=== PATIENT | female | born 1995 | race Caucasian/White ===

== ENCOUNTER 2019-12-04 00:12 | Outpatient (CLI) | payer OTHER, SELFPAY ==
[2019-12-04 17:13] LABS: SARS-CoV-2 RNA PCR Negative
== END 2019-12-04 00:13 | disposition home or self-care (01) ==
LOC: ANHCOVIDDT 00:12
PROVIDERS: PCP Internal Medicine; Visit Provider Internal Medicine Gastroenterology
DX: Z01.812 Encounter for preprocedural laboratory examination (principal); Z11.59 Encounter for screening for other viral diseases
CPT/HCPCS: 87635; C9803; U0003

== ENCOUNTER 2019-12-06 02:12 | Day surgery (SDC) | payer OTHER, SELFPAY ==
[2019-11-30 12:52] VITALS: BMI 35.9
[2019-12-06 07:15] VITALS: BP 118/84; PULSE 61; RESP 16; TEMP 36.7; O2SAT 100; BMI 36.1
[2019-12-06] MEDS: LACTATED RINGERS 1,000 ML 150 ML IV CONT (07:27)
--- NOTE | 2019-12-06 07:27 | P.HP_ITS ---
History of Present Illness History of Present Illness Consent: Risks, benefits, and alternatives have been discussed and questions answered. Patient agrees to proceed with procedure. Chief complaint: change in bowel habits Narrative: Tiffany Tyler is a 24 year old W female referred for colonoscopy for evaluation of change in bowel pattern. Patient has had alternating diarrhea and constipation. She denies any rectal bleeding. There is also associated abdominal pain. This has been intermittent over the past couple years. It is worsening of her symptoms recently. Patient has a family history of celiac disease on her mother's side of the family. She has had serology for this is been negative. She was placed on a gluten free diet with no significant improvement. She is being tested for lactose intolerance as well. no weight loss. Patient has an aunt who has Crohn's disease. [facility] Past Medical History Medical History (Updated 12/05/19 @ 08:59 by Raj Gill DO) Anxiety Depression PCOS (polycystic ovarian syndrome) Renal stones Surgical History Surgical History (Updated 12/05/19 @ 08:59 by Raj Gill DO) History of appendectomy Family History Family History (Updated 07/02/16 @ 16:04 by DOCTOR UNKNOWN) Grandparent Family history of type 2 diabetes mellitus Father Asthma Family history of kidney stones Mother Family history of arthritis Social History Social History Smoking status: Never smoker Alcohol intake: current Meds Home Medications and Allergies Home Medications Medication Instructions Recorded Confirmed Type spironolactone 50 mg tablet 50 mg PO DAILY #30 tablet 11/16/19 11/30/19 Rx fluoxetine 20 mg capsule 20 mg PO DAILY #30 cap 11/20/19 11/30/19 Rx cinnamon bark [Cinnamon] 1,000 mg PO DAILY 11/30/19 11/30/19 History desogestrel-ethinyl estradiol 1 tablet PO DAILY 11/30/19 11/30/19 History [Isibloom] vnefefnmothq-bkk-jtju-FA-vit K 1 tablet PO DAILY 11/30/19 11/30/19 History [Adults Multivitamin] Allergies Allergy/AdvReac Type Severity Reaction Status Date / Time gentamicin Allergy Unknown Swelling Verified 12/06/19 07:12 of the Eye lactose Allergy Unknown diarrhea Verified 12/06/19 07:12 morphine AdvReac Unknown Unknown Verified 12/06/19 07:12 Vital Signs Vital Signs - 24 hr 12/06/19 07:15 Temperature 36.7 C Pulse Rate 61 Respiratory Rate 16 Blood Pressure 118/84 Pulse Oximetry 100 Exam Const: Orientation/consciousness: patient oriented x3 Resp: Auscultation: clear to auscultation bilaterally Cardio: Rate: regular rate Rhythm: regular rhythm Heart sounds: no murmu rs GI: GI Palp: Yes Soft to palpation, No Tenderness to palpation present (GI), Yes No hepatosplenomegaly present and No Palpable mass present Auscultation: normal bowel sounds Neuro: General: patient oriented x3 and no focal motor deficits Extrem: General: no pedal edema Assessment and Plan Additional Plan Colonoscopy for change in bowel pattern
--- NOTE | 2019-12-06 07:31 | WPDANESEPPF ---
Anes - Initial Pre Proc Eval Procedure: Operation Date: 12/06/19 08:30 Proposed Procedures p Colonoscopy - Christopher Wagoner MD Date/Time: 12/06/19 07:31 Surgeon: Christopher Wagoner MD Pre Op Diagnosis: change in bowel habits Patient Data Age: 24 Gender: F Height: 1.63 m Weight: 95.6 kg Last Vital Signs Temp 36.7 C 12/06/19 07:15 Pulse 61 12/06/19 07:15 Resp 16 12/06/19 07:15 BP 118/84 12/06/19 07:15 Pulse Ox 100 12/06/19 07:15 Allergies Allergy/AdvReac Type Severity Reaction Status Date / Time gentamicin Allergy Unknown Swelling Verified 12/06/19 07:12 of the Eye lactose Allergy Unknown diarrhea Verified 12/06/19 07:12 morphine AdvReac Unknown Unknown Verified 12/06/19 07:12 Home Medications Medication Instructions Recorded Confirmed Type spironolactone 50 mg tablet 50 mg PO DAILY #30 tablet 11/16/19 11/30/19 Rx fluoxetine 20 mg capsule 20 mg PO DAILY #30 cap 11/20/19 11/30/19 Rx cinnamon bark [Cinnamon] 1,000 mg PO DAILY 11/30/19 11/30/19 History desogestrel-ethinyl estradiol 1 tablet PO DAILY 11/30/19 11/30/19 History [Isibloom] aykzseqeusze-zgq-vfjh-FA-vit K 1 tablet PO DAILY 11/30/19 11/30/19 History [Adults Multivitamin] Patient hx anesthesia problems: none Family hx anesthesia problems: none PMFSH Past Medical History Medical History (Updated 12/05/19 @ 08:59 by Raj Gill DO) Anxiety Depression PCOS (polycystic ovarian syndrome) Renal stones Surgical History Surgical History (Updated 12/05/19 @ 08:59 by Raj Gill DO) History of appendectomy Family History Family History (Updated 07/02/16 @ 16:04 by DOCTOR UNKNOWN) Grandparent Family history of type 2 diabetes mellitus Father Asthma Family history of kidney stones Mother Family history of arthritis Social History Social History Smoking status: Never smoker Alcohol intake: current Anes - Eval Final PreProcedure Day of Procedure 12/06/19 07:31 Patient weight: obese Heart: regular rate and rhythm Lungs: clear to auscultation and normal air movement Airway: Mallampati scale class II Neurological: alert and oriented Last oral intake: >/= 8 hours ASA classification: II Emergent: no Anesthetic plan: proceed Anesthesia type and monitoring: general GIVS and standard monitoring Informed Consent: The patient's anesthetic plan and its attendant risks and benefits were discussed with the patient/family/POA. Questions were solicited and answers provided to the satisfaction of the patient/family/POA.
[2019-12-06 09:14] VITALS: BP 84/39; PULSE 83; RESP 16; O2SAT 98
[2019-12-06 09:24] VITALS: BP 100/54; PULSE 83; RESP 16; O2SAT 98
[2019-12-06 09:34] VITALS: BP 100/54; PULSE 76; RESP 22; O2SAT 100
== END 2019-12-06 10:00 | disposition home or self-care (01) ==
PROVIDERS: PCP Internal Medicine; Visit Provider Internal Medicine Gastroenterology
PROC: 0DJD8ZZ Inspection of Lower Intestinal Tract, Via Natural or Artificial Opening Endoscopic (ICD-10-PCS; CPT 45378; principal; 2019-12-06 08:30)
DX: R19.4 Change in bowel habit (principal); K63.89 Other specified diseases of intestine; E28.2 Polycystic ovarian syndrome; F41.8 Other specified anxiety disorders; E66.9 Obesity, unspecified; Z68.36 Body mass index [BMI] 36.0-36.9, adult
CPT/HCPCS: 45380; 88305; J2704; J7120

== ENCOUNTER 2021-03-22 12:10 | Emergency (ER) | payer OTHER, SELFPAY ==
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
[2021-03-22 12:17] VITALS: BP 124/82; PULSE 87; RESP 12; TEMP 36.9; O2SAT 97
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
== END 2021-03-22 13:45 | disposition home or self-care (01) ==
PROVIDERS: Emergency Provider Registered Nurse; PCP Internal Medicine
DX: M62.838 Other muscle spasm (principal); V43.52XA Car driver injured in collision with other type car in traffic accident, initial encounter; E28.2 Polycystic ovarian syndrome
CPT/HCPCS: 72050; 99213; G0463

== ENCOUNTER 2021-08-20 11:13 | Emergency (ER) | payer BC, SELFPAY ==
--- NOTE | 2021-08-20 11:18 | ED.ABDPAIN ---
HPI - Abdominal Pain General Chief Complaint: Abdominal Pain Stated Complaint: ABD PAIN Time Seen by Provider: 08/20/21 11:18 Source: patient Mode of arrival: ambulatory Limitations: no limitations History of Present Illness HPI narrative: Ms. Tyler is a 25-year-old female patient presenting to the clinic today with complaints of lower abdominal pain and nausea x1 day. She reports she thinks that she is having an ovarian cyst rupture. She denies any fever, chills, urinary symptoms, blood in stool, or . Also reports so clear vaginal discharge without odor. No new sexual partners. Last BM was either this morning or yesterday and was normal for her History of IBS, PCOS, and appendectomy. States pain is a stabbing/ sharp pain in the left lower abdomen/pelvis and is a 6/10 on pain rating scale. She is passing gas MD elicited complaint: abdominal pain Related Data Home Medications Medication Instructions Recorded Confirmed Adults Multivitamin 1 tablet PO DAILY 11/30/19 11/30/19 cinnamon bark [Cinnamon] 1,000 mg PO DAILY 11/30/19 11/30/19 desogestrel-ethinyl estradiol 1 tablet PO DAILY 11/30/19 11/30/19 [Isibloom] albuterol sulfate INHALATION 03/22/21 Allergies Allergy/AdvReac Type Severity Reaction Status Date / Time gentamicin Allergy Unknown Swelling Verified 12/06/19 07:12 of the Eye lactose Allergy Unknown diarrhea Verified 12/06/19 07:12 morphine AdvReac Unknown Unknown Verified 12/06/19 07:12 Review of Systems Review of Systems: Pertinent positives per HPI. Patient denies any fever, chills, rash, headache, visual changes, dizziness, cough, runny nose, sore throat, shortness of breath, chest pain, palpitations, vomiting, diarrhea, constipation, or any urinary issues. [facility] Past Medical History Medical History Anxiety Depression PCOS (polycystic ovarian syndrome) Renal stones Surgical History Surgical History History of appendectomy Family History Family History Grandparent Family history of type 2 diabetes mellitus Father Asthma Family history of kidney stones Mother Family history of arthritis Social History Social History Smoking status: Never smoker Alcohol intake: current Substance use: never Gender identity (if verbalized by the patient): Female Comments At the time of my signature, I reviewed and agree with the nursing past medical, surgical, social, and family history. There is no relevant family history pertinent to the patient complaint. Exam Narrative: General: Well-developed, well nourished, in no apparent distress. Cardio: Regular rate and rhythm, s1 and s2 normal, no murmur appreciated. Resp: Clear to auscultation bilaterally, no rhonchi, rales, wheezing or rubs. Abdomen: Soft, obese, well-healed right lower quadrant surgical scar from appendectomy, pliable, bowel sounds present in all quadrants, tender to palpation over the left lower abdomen and left adnexa, negative Javier and Rovsing sign, no organomegly, no CVAT tenderness. Course Course Emergency Course: Portions of this record may have been created with voice recognition software. Level of Care: Express Care Visit Vital Signs Vital signs: Vital Signs Temperature 36.6 C 08/20/21 11:20 Pulse Rate 64 08/20/21 11:20 Respiratory Rate 16 08/20/21 11:20 Blood Pressure 134/74 08/20/21 11:20 Pulse Oximetry 100 08/20/21 11:20 Temperature 36.6 C 08/20/21 11:20 Pulse Rate 64 08/20/21 11:20 Respiratory Rate 16 08/20/21 11:20 Blood Pressure 134/74 08/20/21 11:20 Pulse Oximetry 100 08/20/21 11:20 Vital signs reviewed MDM - Abdominal Pain MDM Narrative Medical decision making narrative: Patient is having left lower q
[2021-08-20 11:20] VITALS: BP 134/74; PULSE 64; RESP 16; TEMP 36.6; O2SAT 100
== END 2021-08-20 11:51 | disposition short-term general hospital (02) ==
PROVIDERS: Emergency Provider Nurse Practitioner Family
DX: R10.32 Left lower quadrant pain (principal); N94.89 Other specified conditions associated with female genital organs and menstrual cycle; E28.2 Polycystic ovarian syndrome
CPT/HCPCS: 81003; 81025; 99212; G0463

== ENCOUNTER 2021-08-20 12:05 | Emergency (ER) | payer BC, SELFPAY ==
--- NOTE | ~2021-08-20 | US_ITS ---
EXAMINATION: US pelvic complete w TV DATE: 08/20/2021 15:27 INDICATION: Pelvic pain TECHNIQUE: Multiple transabdominal and endovaginal sonographic images of the pelvis were obtained. COMPARISON: 04/06/2018 FINDINGS: The uterus measures 6.8 x 2.6 x 4.0 cm. The endometrial complex measures 4 mm in thickness. Unchange d 3 mm echogenic dystrophic calcification in the anterior myometrium. The right ovary measures 3.2 x 2.6 x 2.4 cm. The left ovary measures 2.6 x 2.2 x 2.0 cm. There are multiple subcentimeter anechoic c ysts at the periphery of both ovaries which can be seen in the setting of polycystic ovarian disease. There is normal vascular flow in the ovaries. There is no free fluid in the pelvis. IMPRESSION: 1. Multiple subcentimeter cysts at the periphery of both ovaries which can be seen with polycystic ov jazmine disease. Reviewed, dictated and finalized at location A. MANAGER IMPRESSION: 1. Multiple subcentimeter cysts at the periphery of both ovaries which can be s een with polycystic ovarian disease.
[2021-08-20 12:08] VITALS: BP 133/84; PULSE 98; RESP 18; TEMP 36.3; O2SAT 100
[2021-08-20 13:24] VITALS: BP 152/72; PULSE 106; RESP 14; TEMP 36.9; O2SAT 100
--- NOTE | 2021-08-20 13:39 | ED.ABDPAIN ---
HPI - Abdominal Pain General Chief Complaint: Abdominal Pain Stated Complaint: abd pain Time Seen by Provider: 08/20/21 13:32 Source: patient Mode of arrival: ambulatory Limitations: no limitations History of Present Illness HPI narrative: Patient is a 25-year-old female complaining of left pelvic pain, I think I have a ruptured cyst , 8 out of 10 pain, dull, nonradiating started today. Patient was seen in urgent care and was told to go to the emergency room since they do not have ultrasound. Patient states that she has a history of ovarian cyst. Denies being . Denies any vaginal bleeding or discharge. Patient denies any chest pain, shortness of breath, abdominal pain, nausea, vomiting, diarrhea, urinary symptoms, fever or chills. Related Data Home Medications Medication Instructions Recorded Confirmed Adults Multivitamin 1 tablet PO DAILY 11/30/19 11/30/19 cinnamon bark [Cinnamon] 1,000 mg PO DAILY 11/30/19 11/30/19 desogestrel-ethinyl estradiol 1 tablet PO DAILY 11/30/19 11/30/19 [Isibloom] albuterol sulfate INHALATION 03/22/21 Allergies Allergy/AdvReac Type Severity Reaction Status Date / Time gentamicin Allergy Unknown Swelling Verified 12/06/19 07:12 of the Eye lactose Allergy Unknown diarrhea Verified 12/06/19 07:12 morphine AdvReac Unknown Unknown Verified 12/06/19 07:12 Review of Systems Review of Systems: All systems reviewed & are unremarkable except as noted in HPI and below Constitutional: Constitutional: Denies body ache(s), Denies chills, Denies excessive sweating, Denies fatigue, Denies fever(s), Denies headache(s), Denies lethargy, Denies malaise, Denies weakness and Denies weight loss Eyes: Eyes: Denies blurry vision, Denies change in vision and Denies loss of vision ENT: Denies dizziness, Denies ear discharge, Denies headache(s), Denies lip swelling, Denies epistaxis, Denies nasal congestion, Denies neck pain, Denies throat swelling and Denies tongue swelling Cardiovascular: Cardiovascular: Denies chest pain, Denies chest pain at rest, Denies chest pain with activity, Denies diaphoresis, Denies rapid heart rate, Denies edema, Denies irregular heart rhythm, Denies lightheadedness, Denies palpitations, Denies dyspnea and Denies dyspnea on exertion Respiratory: Respiratory: Denies chest congestion, Denies cough, Denies hemoptysis, Denies dyspnea and Denies dyspnea on exertion Gastrointestinal: Gastrointestinal: Denies abdominal pain, Denies melena, Denies hematochezia, Denies diarrhea, Denies nausea, Denies vomiting and Denies hematemesis Musculoskeletal: Musculoskeletal: Denies abnormal gait, Denies deformity, Denies joint swelling, Denies limited range of motion, Denies neck pain and Denies numbness Neurologic: Denies Abnormal speech present, Denies abnormal gait, Denies confusion, Denies dizziness, Denies headache(s), Denies focal weakness, Denies loss of vision, Denies numbness, Denies Other visual disturbances, Denies Sensory deficit (Neuro) and Denies weakness Psychiatric: Psychiatric: Denies confusion, Denies depression, Denies auditory hallucinations, Denies homicidal ideation and Denies suicidal ideation Endocrine: Endocrine: Denies cold intolerance, Denies excessive sweating, Denies fatigue, Denies heat intolerance and Denies palpitations Hematologic/Lymphatic: Hematologic/Lymphatic: Denies easy bleeding and Denies easy bruising Allergic/Immunologic: Allergic/Immunologic: Denies lip swelling, Denies throat swelling and Denies tongue swelling PMFSH Past Medical History Medical History Anxiety Depression PCOS (polycystic ovarian syndrome) Renal stones Surgical History Surgical History History of appendectomy Family History Family History Grandparent Family history of type 2 diabetes mellitus Father Asthma
[2021-08-20 14:33] LABS: Basophils Absolute Auto 0.1 K/mm3 (0.0-0.1); Basophils Percent Auto 0.4 % (0.2-1.2); Eosinophils Absolute Auto 0.2 K/mm3 (0-0.3); Eosinophils Percent Auto 1.3 % (0-4.4); Hematocrit 42.1 % (37.0-47.0); Hemoglobin 13.3 g/dL (12.0-15.0); Immature Granulocyte Absolute 0.04 K/mm3 (0.00-0.031); Immature Granulocyte Percent A 0.3 % (0-0.5); Lymphocytes Percent Auto 29.1 % (18.3-44.2); Mean Corpuscular HGB Conc 31.6 g/dl (32-36); Mean Corpuscular Hemoglobin 30.6 pg (26-34); Mean Corpuscular Volume 96.8 fl (80-100); Mean Platelet Volume 9.5 fl (7.4-10.4); Monocytes Absolute Auto 0.7 K/mm3 (0.1-0.6); Monocytes Percent Auto 6.2 % (2.6-8.5); Neutrophils Absolute Auto 7.5 K/mm3 (1.3-6.7); Neutrophils Percent Auto 62.7 % (45.5-73.1); Platelet Count Result 441 k/mm3 (150-375); Red Blood Count 4.35 M/mm3 (4.2-5.4)
[2021-08-20 14:46] LABS: Add Urine Microscopic? YES; Appearance Urine Cloudy (Clear); Bacteria Urine Trace /hpf; Bilirubin Urine Negative (Negative); Blood Urine 2+ (Negative); Color Urine Yellow (Yellow); Glucose Urine UA Negative (Negative); Ketones Urine 1+ mg/dL (Negative); Leukocyte Esterase Ur 3+ LEU/UL (Negative); Mucus Urine Few /lpf; Nitrate Urine Negative (Negative); Protein Urine Negative (Negative); Specific Grav Ur 1.027 (1.001-1.035); Squamous Epithelial Cell Urine Many /hpf (Few); Urobilinogen Urine Negative mg/dL (<2.0); WBC Urine 51-75 /hpf
[2021-08-20 14:49] LABS: Alanine Aminotransferase 25 U/L (4-35); Albumin Level 4.2 g/dL (3.5-5.1); Alkaline Phosphatase 67 U/L (38-126); Anion Gap 9 mmol/L (8-16); Aspartate Amino Transferase 36 U/L (14-36); Bilirubin,Total 0.5 mg/dL (0.2-1.3); Blood Urea Nitrogen 14 mg/dL (7-17); Calcium 9.2 mg/dL (8.4-10.2); Carbon Dioxide 19 mmol/L (22-30); Chloride 109 mmol/L (98-107); Estimated CRCL calculation 141 ml/min; Estimated Glomerular Filt Rate > 60; Glucose 86 mg/dL (65-110); Lipase 53 U/L (23-300); Potassium 4.1 mmol/L (3.4-5.0); Sodium 137 mmol/L (137-145)
[2021-08-20] MEDS: HYDROcodone/acetaminophen (*CRX) 5-325 MG TABLET 1 TAB PO (16:07)
[2021-08-20] MEDS: KETOROLAC 30 MG/ML VIAL (*BKC) IM (16:07)
== END 2021-08-20 16:30 | disposition home or self-care (01) ==
PROVIDERS: Emergency Provider Emergency Medicine; PCP Internal Medicine
DX: N83.201 Unspecified ovarian cyst, right side (principal); F41.9 Anxiety disorder, unspecified; F32.9 Major depressive disorder, single episode, unspecified; Z87.442 Personal history of urinary calculi
CPT/HCPCS: 36415; 76830; 76856; 80053; 81001; 81025; 83690; 85025; 87086; 87088; 96372; 99284; A9270; J1885

== ENCOUNTER 2021-09-25 16:10 | Emergency (ER) | payer BC, SELFPAY ==
[2021-09-25 16:16] VITALS: BP 126/67; PULSE 93; RESP 16; TEMP 36.3; O2SAT 98
--- NOTE | 2021-09-25 16:20 | ED.NAVMDI ---
HPI - Nausea/Vomiting/Diarrhea General Chief complaint: Nausea/Vomiting/Diarrhea Stated complaint: NAUSEA/VOMITING/DIARRHEA Time Seen by Provider: 09/25/21 16:22 History of Present Illness HPI Narrative: 26-year-old female who presents to Express Care with complaints of nausea vomiting with diarrhea which started this morning. Patient states that she started with nausea and vomiting early this morning and then she has had 3 watery stools with some abdominal cramping. Patient denies any sharp pain to abdomen and voices crampy sensation to abdomen with diarrhea only. Presently states nausea but no emesis since around 0400, no acute pain to abdomen at this time. She reports that bravo had similar symptoms 2 days ago. MD elicited complaint: nausea, vomiting and diarrhea Onset (ago): hour(s) (10) Description of vomiting: food contents Description of diarrhea: watery Associated nausea: Yes Associated abdominal pain: Yes Location of pain: diffuse Radiation: diffuse Pain consistency: colicky Severity: mild Quality: cramping Exacerbating factors: bowel movement Context: sick contacts Associated symptoms: loss of appetite and nausea/vomiting Treatment prior to arrival: other Related Data Home Medications Medication Instructions Recorded Confirmed Adults Multivitamin 1 tablet PO DAILY 11/30/19 11/30/19 cinnamon bark [Cinnamon] 1,000 mg PO DAILY 11/30/19 11/30/19 desogestrel-ethinyl estradiol tablet 09/25/21 [Apri] fluoxetine mg 09/25/21 Allergies Allergy/AdvReac Type Severity Reaction Status Date / Time gentamicin Allergy Unknown Swelling Verified 09/25/21 16:14 of the Eye lactose Allergy Unknown diarrhea Verified 09/25/21 16:14 morphine AdvReac Unknown Unknown Verified 09/25/21 16:14 Review of Systems Review of Systems: CONSTITUTIONAL: Denies fever, chills, or sweats. EYES: Denies visual changes, redness, or discharge. ENT: Denies rhinorrhea, congestion, sore throat, or otalgia. CARDIOVASCULAR: Denies chest pain, palpitations, or edema. RESPIRATORY: Denies cough or dyspnea. GASTROINTESTINAL: positive for crampy type of diffuse abdominal pain with nausea, vomiting, or diarrhea. GENITOURINARY: Denies dysuria or hematuria. SKIN: Denies rash or itching. MUSCULOSKELETAL: Denies back pain, joint pain, or myalgia. NEUROLOGIC: Denies headache, numbness, or weakness. PSYCHIATRIC: Positive for history of anxiety or depression. All systems reviewed & are unremarkable except as noted in HPI and below PMFSH Past Medical History Medical History (Updated 09/25/21 @ 17:04 by Amy Albright NP) Anxiety Depression Eczema PCOS (polycystic ovarian syndrome) Renal stones Surgical History Surgical History History of appendectomy Family History Family History Grandparent Family history of type 2 diabetes mellitus Father Asthma Family history of kidney stones Mother Family history of arthritis Social History Social History Smoking status: Never smoker Alcohol intake: current Substance use: never Gender identity (if verbalized by the patient): Female Comments At time of signature, agree with nursing past medical, surgical, social and family history. There is no relevant family history pertinent to the presenting complaint Exam Narrative: GENERAL: Well-appearing, well-nourished, and in no acute distress. HEAD: Normocephalic, atraumatic. EYES: PERRLA and EOMI. ENT: Nares clear, no rhinorrhea or epistaxis. Mucous membranes moist.TM's normal with good light reflex, throat pink with no lesions or exudate, no tonsil swelling NECK: Supple.no lymphadenopathy CHEST: Clear to auscultation. No respiratory distress.SAO2 98% on room air, no cough or any tachypnea. HEART: Regular rate and rhythm. No murmur heard. Normal peripheral pulses. ABDOMEN: Soft,
== END 2021-09-25 16:44 | disposition home or self-care (01) ==
PROVIDERS: Emergency Provider Registered Nurse
DX: K52.9 Noninfective gastroenteritis and colitis, unspecified (principal); E28.2 Polycystic ovarian syndrome; F41.9 Anxiety disorder, unspecified; F32.A Depression, unspecified
CPT/HCPCS: 99213; G0463

== ENCOUNTER 2022-03-20 08:28 | Emergency (ER) | payer OTHER, SELFPAY ==
--- NOTE | 2022-03-20 08:39 | ED.URI ---
HPI - URI/Sore Throat General Chief Complaint: Upper Respiratory Infection Stated Complaint: sore throat, cough, sinus congestion Time Seen by Provider: 03/20/22 08:46 Source: patient and RN notes reviewed Mode of arrival: ambulatory Limitations: no limitations History of Present Illness HPI Narrative: 26-year-old female presents with concern for 4 to 5-day history of nasal congestion and drainage, sore throat, fever. She reports painful swallowing. She reports her partner has had similar symptoms. She reports she is taken Sudafed and cough drops without relief. MD elicited complaint: sore throat and nasal congestion Related Data Home Medications Medication Instructions Recorded Confirmed cinnamon bark 500 mg capsule 1,000 mg PO DAILY 11/30/19 03/20/22 (Cinnamon) multivit with minerals-iron 18 1 tablet PO DAILY 11/30/19 03/20/22 mg-folic ac 400 mcg-vit K 25 mcg tablet (Adults Multivitamin) desogestrel 0.15 mg-ethinyl 1 tablet PO DAILY 09/25/21 03/20/22 estradiol 0.03 mg tablet (Apri) fluoxetine 20 mg capsule 20 mg PO DAILY 09/25/21 03/20/22 Allergies Allergy/AdvReac Type Severity Reaction Status Date / Time gentamicin Allergy Unknown Swelling Verified 03/20/22 08:50 of the Eye lactose Allergy Unknown diarrhea Verified 03/20/22 08:50 morphine AdvReac Unknown Unknown Verified 03/20/22 08:50 Review of Systems Review of Systems: CONSTITUTIONAL: Reports malaise, fever. EYES: Denies visual changes, redness, or discharge. ENT: Reports rhinorrhea, congestion, and sore throat. Denies sinus pain, otalgia CARDIOVASCULAR: Denies chest pain, palpitations, or edema. RESPIRATORY: Reports cough. Denies dyspnea. GASTROINTESTINAL: Denies abdominal pain, nausea, vomiting, diarrhea SKIN: Denies rash or itching. MUSCULOSKELETAL: Denies myalgia. NEUROLOGIC: Denies headache. All systems reviewed & are unremarkable except as noted in HPI and below PMFSH Past Medical History Medical History (Updated 03/20/22 @ 08:57 by Ariadna Kwong NP) Anxiety Depression Eczema PCOS (polycystic ovarian syndrome) Renal stones Surgical History Surgical History History of appendectomy Family History Family History Grandparent Family history of type 2 diabetes mellitus Father Asthma Family history of kidney stones Mother Family history of arthritis Social History Social History Smoking status: Never smoker Alcohol intake: current Substance use: never Gender identity (if verbalized by the patient): Female Comments At time of signature, agree with nursing past medical, surgical, social and family history. There is no relevant family history pertinent to the presenting complaint Exam Narrative: GENERAL: Nontoxic. And in no acute distress. HEAD: Normocephalic EYES: PERRLA, conjunctivae clear ENT: Nares clear, clear discharge. Mucous membranes moist. TM pearly robert with dull light reflex bilaterally; no tragal tenderness. Oropharynx erythematous without lesions. Tonsils enlarged and without exudate, no drooling, no hoarseness, no trismus, uvula midline. NECK: Supple. No lymphadenopathy CHEST: Clear to auscultation, breath sounds equal. No wheezing, rhonchi, rales, or stridor. No respiratory distress, speaks in full sentences. HEART: Regular rate and rhythm. No murmur heard. SKIN: Warm, dry, no rash. NEURO: Alert and oriented x3. PSYCH: Normal mood and affect Course Course Emergency Course: Patient is aware of diagnosis, understands and agrees to treatment plan. Anticipatory guidance given. Patient agrees to follow-up as directed and is aware of reasons to seek care at the emergency department. Portions of this record may have been created with voice recognition software Level of Care: Express Care Visit Vital Signs Vital signs: Reviewe
[2022-03-20 08:42] VITALS: BP 112/75; PULSE 78; RESP 18; TEMP 36.3; O2SAT 100
== END 2022-03-20 09:04 | disposition home or self-care (01) ==
PROVIDERS: Emergency Provider Nurse Practitioner
DX: J02.9 Acute pharyngitis, unspecified (principal); F41.9 Anxiety disorder, unspecified; F32.A Depression, unspecified; E28.2 Polycystic ovarian syndrome
CPT/HCPCS: 87081; 87880; 99213; G0463

== ENCOUNTER 2022-04-07 14:29 | Emergency (ER) | payer OTHER, SELFPAY ==
[2022-04-07] VITALS (11 sets, daily range): BP systolic 131–139; BP diastolic 70–95; PULSE 82–102; RESP 13–28; TEMP 36.5; O2SAT 97–100
--- NOTE | ~2022-04-07 | CT_ITS ---
EXAMINATION: CT abdomen pelvis w con DATE: 04/07/2022 16:13 INDICATION: Generalized abdominal pain. Flank pain. Hematuria. TECHNIQUE: Computed tomography (CT) of the abdomen and pelvis was performed with 100 mL Omnipaque 350 intravenous contrast. Automated exposure control and iterative reconstruction technique were employe d. The dose-length product was 1618.93 mGy-cm. COMPARISON: CT abdomen and pelvis 10/15/2016 FINDINGS: The visualized portions of the lung bases demonstrate mild elevation of right hemidiaphragm . No pleural effusion. The heart size is normal. No pericardial effusion. The liver, gallbladder, spl een, pancreas, adrenal glands, and kidneys are normal. There are no dilated loops of bowel. The appen carolin is not visualized. There are no pathologically enlarged lymph nodes. There is no free intraperito krista fluid. There is mild thoracolumbar spondylosis. IMPRESSION: 1. No etiology for the patient's symptoms. Reviewed, dictated and finalized at location A.
--- NOTE | 2022-04-07 15:02 | ED.GENADULT ---
HPI - General Adult General Chief complaint: Abdominal Pain Stated complaint: Possible Kidney Infection, Nausea Time Seen by Provider: 04/07/22 14:39 History of Present Illness HPI narrative: 26-year-old female with history of kidney stones presenting to the emergency department for evaluation of 1 week of right flank pain. Patient had follow-up with a prompt care and was instructed to present to the emergency department for evaluation. Patient declined medications for pain control. Related Data Home Medications Medication Instructions Recorded Confirmed cinnamon bark 500 mg capsule 1,000 mg PO DAILY 11/30/19 03/20/22 (Cinnamon) multivit with minerals-iron 18 1 tablet PO DAILY 11/30/19 03/20/22 mg-folic ac 400 mcg-vit K 25 mcg tablet (Adults Multivitamin) desogestrel 0.15 mg-ethinyl 1 tablet PO DAILY 09/25/21 03/20/22 estradiol 0.03 mg tablet (Apri) fluoxetine 20 mg capsule 20 mg PO DAILY 09/25/21 03/20/22 Allergies Allergy/AdvReac Type Severity Reaction Status Date / Time gentamicin Allergy Unknown Swelling Verified 03/20/22 08:50 of the Eye lactose Allergy Unknown diarrhea Verified 03/20/22 08:50 morphine AdvReac Unknown Unknown Verified 03/20/22 08:50 Review of Systems Review of Systems: CONSTITUTIONAL: Denies fever, chills, or sweats. EYES: Denies visual changes, redness, or discharge. ENT: Denies rhinorrhea, congestion, sore throat, or otalgia. CARDIOVASCULAR: Denies chest pain, palpitations, or edema. RESPIRATORY: Denies cough or dyspnea. GASTROINTESTINAL: See HPI GENITOURINARY: Denies dysuria or hematuria. SKIN: Denies rash or itching. MUSCULOSKELETAL: Denies back pain, joint pain, or myalgia. NEUROLOGIC: Denies headache, numbness, or weakness. [facility] Past Medical History Medical History (Updated 04/08/22 @ 00:00 by Houston Rivera) Anxiety Depression Eczema PCOS (polycystic ovarian syndrome) Renal stones Surgical History Surgical History History of appendectomy Family History Family History Grandparent Family history of type 2 diabetes mellitus Father Asthma Family history of kidney stones Mother Family history of arthritis Social History Social History Smoking status: Never smoker Alcohol intake: current Substance use: never Gender identity (if verbalized by the patient): Female Exam Narrative: APPEARANCE: Well appearing, no pain, no distress, well-nourished. HEAD: normocephalic, atraumatic. EYES: PERRLA/EOMI, conjunctivae clear. NOSE: Normal no drainage NECK: Supple. No adenopathy, no masses. RESPIRATORY: Airway patent, respirations nonlabored. Clear to auscultation bilaterally, no rales, rhonchi, wheezing. CARDIOVASCULAR: Regular rate and rhythm without murmurs rubs or gallops. ABDOMINAL: Soft, nontender, nondistended, normal bowel sounds. No reproducible CVA tenderness to palpation. MUSCULOSKELETAL: Moves all extremities. Strength/ROM intact, No edema, No calf tenderness. NEURO: Alert. Cranial nerves II through XII intact. Grossly intact SKIN: Warm, dry. Normal Color Course Course Emergency Course: Patient was afebrile with no leukocytosis. Patient had normal CMP. Patient's UA was concerning for UTI. CT scan showed no evidence of acute pathology. Patient was updated on the plan for treatment. All question concerns were addressed. Vital Signs Vital signs: Vital Signs Temperature 97.7 F 04/07/22 14:36 Pulse Rate 90 04/07/22 14:36 Respiratory Rate 14 04/07/22 14:36 Blood Pressure 131/70 04/07/22 14:36 Pulse Oximetry 99 04/07/22 14:36 Oxygen Delivery Room Air 04/07/22 14:36 Temperature 97.7 F 04/07/22 14:36 Pulse Rate 82 04/07/22 17:16 Respiratory Rate 13 04/07/22 17:16 Blood Pressure 139/95 H 04/07/22 17:54 Pulse Oximetry 99 04/07/22 17:
[2022-04-07 15:21] LABS: Basophils Absolute Auto 0.1 K/mm3 (0.0-0.1); Basophils Percent Auto 0.7 % (0.2-1.2); Eosinophils Absolute Auto 0.2 K/mm3 (0-0.3); Eosinophils Percent Auto 1.9 % (0-4.4); Hematocrit 41.1 % (37.0-47.0); Hemoglobin 13.5 g/dL (12.0-15.0); Immature Granulocyte Absolute 0.01 K/mm3 (0.00-0.031); Immature Granulocyte Percent A 0.1 % (0-0.5); Lymphocytes Absolute Auto 3.34 K/mm3 (0.9-3.2); Lymphocytes Percent Auto 35.3 % (18.3-44.2); Mean Corpuscular HGB Conc 32.8 g/dl (32-36); Mean Corpuscular Hemoglobin 30.4 pg (26-34); Mean Corpuscular Volume 92.6 fl (80-100); Mean Platelet Volume 9.4 fl (7.4-10.4); Monocytes Absolute Auto 0.8 K/mm3 (0.1-0.6); Monocytes Percent Auto 8.4 % (2.6-8.5); Neutrophils Absolute Auto 5.1 K/mm3 (1.3-6.7); Neutrophils Percent Auto 53.6 % (45.5-73.1); Platelet Count Result 457 k/mm3 (150-375); Red Blood Count 4.44 M/mm3 (4.2-5.4); White Blood Count 9.5 K/mm3 (4.5-10.0)
[2022-04-07 15:22] LABS: Add Urine Microscopic? YES; Appearance Urine Cloudy (Clear); Bacteria Urine Trace /hpf; Bilirubin Urine Negative (Negative); Blood Urine 2+ (Negative); Color Urine Yellow (Yellow); Glucose Urine UA Negative (Negative); Ketones Urine Negative (Negative); Leukocyte Esterase Ur 3+ LEU/UL (Negative); Mucus Urine Rare /lpf; Nitrate Urine Negative (Negative); Protein Urine Negative (Negative); RBC Urine 21-50 /hpf (0-2); Specific Grav Ur 1.024 (1.001-1.035); Squamous Epithelial Cell Urine Many /hpf (Few); Urobilinogen Urine Negative mg/dL (<2.0)
[2022-04-07 15:23] LABS: Lactic Acid Reflex 2.2 mmol/L (0.7-2.0)
[2022-04-07 15:24] LABS: Alanine Aminotransferase 33 U/L (6-35); Albumin Level 4.4 g/dL (3.5-5.1); Alkaline Phosphatase 87 U/L (38-126); Anion Gap 14 mmol/L (8-16); Aspartate Amino Transferase 30 U/L (14-36); Bilirubin,Total 0.3 mg/dL (0.2-1.3); Blood Urea Nitrogen 12 mg/dL (7-17); Calcium 9.3 mg/dL (8.4-10.2); Carbon Dioxide 21 mmol/L (22-30); Chloride 105 mmol/L (98-107); Estimated CRCL calculation 119 ml/min; Estimated Glomerular Filt Rate > 60; Glucose 106 mg/dL (65-110); Lipase 93 U/L (23-300); Potassium 3.7 mmol/L (3.4-5.0); Sodium 140 mmol/L (137-145)
[2022-04-07] MEDS: ONDANSETRON INJ 4 MG/2 ML VIAL IV PUSH (15:43)
--- NOTE | 2022-04-07 16:11 | PC.NURSE ---
Patient off unit to CT.
[2022-04-07 18:11] LABS: Reflex Lactic Acid Yes or No Add Lactic
== END 2022-04-07 17:56 | disposition home or self-care (01) ==
PROVIDERS: Emergency Provider Emergency Medicine
DX: N39.0 Urinary tract infection, site not specified (principal); R31.9 Hematuria, unspecified; Z87.442 Personal history of urinary calculi
CPT/HCPCS: 36415; 74177; 80053; 81001; 81025; 83605; 83690; 85025; 87086; 96365; 96375; 99284; J0696; J2405; Q9967